=== PATIENT | female | born 1985 | race African-American/Black ===

== ENCOUNTER 2017-04-14 17:53 | Emergency (ER) | payer OTHER ==
[~2017-04-14] VITALS: Ht 152.4 cm; Wt 109.8 kg
[~2017-04-14 17:53] MED LIST: OXYC-323 PO
[2017-04-14 18:20] VITALS: BP 133/72
[2017-04-14 19:15] LABS: BILIRUBIN,URINE NEGATIVE (NEG); GLUCOSE,URINE NEGATIVE (NEG); NITRITE,URINE NEGATIVE (NEG); PROTEIN,URINE 30 mg/dL (NEG-TRACE)
[2017-04-14 19:21] LABS: BACTERIA,URINE MODERATE /HPF (0-FEW); SQUAMOUS EPITHELIAL CELL,UR MANY /LPF
--- NOTE | 2017-04-14 19:38 | ED.ADGEN ---
Past Medical History Past Medical History: No Pertinent History Past Surgical History: Cholecystectomy, Additional Past Surgical Histo: X 1 Alcohol Use: None Drug Use: None Adult General Chief Complaint Chief Complaint: ABDOMINAL PAIN HPI HPI Patient is a 31 year old female who present suprapubic pain, abrupt onset approximately 1 hour prior to ED arrival. Pain was described as sharp, nonradiating, and rated moderate to severe. It is currently resolved. No fever chills, nausea, vomiting, flank pain, hematuria, urinary frequency, urgency, vaginal discharge or pain. Patient was last menstrual period was 3 weeks ago she is on n oral contraceptive pill. Review of Systems Review of Systems ROS as per HPI. Allergies Allergies Allergies Coded Allergies Type Severity Reaction Last Updated Verified No Known Drug Allergies 03/11/16 No Physical Exam Physical Exam Constitutional: Well developed, well nourished, no acute distress, non-toxic appearance. HENT: Normocephalic, atraumatic, bilateral external ears normal, no oral exudates, nose normal. Eyes: PERRLA, EOMI, conjunctiva normal. Neck: Normal range of motion, supple. Cardiovascular:Heart rate regular rhythm. Lungs & Thorax: Bilateral breath sounds clear to auscultation. Abdomen: Bowel sounds normal, soft, no tenderness. Skin: Warm, dry, no erythema, no rash. Back: No tenderness, no CVA tenderness. Extremities: No tenderness. Neurologic: Alert and oriented X 3, normal motor function, normal sensory function, no focal deficits noted. Psychologic: Affect normal, judgement normal, mood normal. Current Patient Data Vital Signs Vital Signs Date Time Temp Pulse Resp B/P (MAP) Pulse Ox O2 Delivery O2 Flow Rate FiO2 04/14/17 18:20 98.2 111 16 133/72 (92) 97 Room Air 98.2 Lab Values Laboratory Tests Test 04/14/17 18:00 04/14/17 18:55 POC Urine HCG, Qualitative Hcg negative (Negative) Urine Collection Type Unknown Urine Color Yellow Urine Clarity Clear Urine pH 6.0 Urine Specific [place] >=1.030 Urine Protein 30 mg/dL (NEG-TRACE) Urine Glucose (UA) Negative mg/dL (NEG) Urine Ketones (Stick) Negative mg/dL (NEG) Urine Blood Moderate (NEG) Urine Nitrite Negative (NEG) Urine Bilirubin Negative (NEG) Urine Urobilinogen Dipstick 1.0 mg/dL (0.2 mg/dL) Urine Leukocyte Esterase Negative (NEG) Urine RBC 1-2 /HPF (0-2) Urine WBC 1-4 /HPF (0-4) Urine Squamous Epithelial Cells Many /LPF Urine Bacteria Moderate /HPF (0-FEW) Urine Mucus Marked /LPF EKG EKG [] Radiology/Procedures Radiology/Procedures [] Course & Med Decision Making Course & Med Decision Making Pertinent Labs and Imaging studies reviewed. (See chart for details) [Abdomen soft, nontender. Patient symptom free while in the ED. UA unremarkable. HCG negative. Recommend watchful waiting. Term precautions reviewed. Courtesy work note provided.] Dragon Disclaimer Dragon Disclaimer This electronic medical record was generated, in whole or in part, using a voice recognition dictation system. STEPHANE PEDERSEN DO Apr 14, 2017 19:38
== END 2017-04-14 19:58 | disposition home or self-care (01) ==
LOC: ER 17:53
DX: R10.30 Lower abdominal pain, unspecified (principal); Z90.49 Acquired absence of other specified parts of digestive tract; Z98.890 Other specified postprocedural states
CPT/HCPCS: 81001; 81025; 87086; 99284

== ENCOUNTER 2017-12-03 19:52 | Emergency (ER) | payer OTHER | END 2017-12-03 20:42 | disposition home or self-care (01) | LOC: ER 20:42 | DX: H66.93 Otitis media, unspecified, bilateral (principal); J02.9 Acute pharyngitis, unspecified | CPT/HCPCS: 99283 ==